=== PATIENT | male | born 1975 | race Hispanic/Latino ===

== ENCOUNTER 2017-08-07 13:04 | Outpatient (RCR) | payer OTHER, BC, SELFPAY ==
--- NOTE | 2017-08-07 15:45 | PT.OTN ---
Current Diagnoses Pain in right hip (08/07/17) Stiffness of unspecified joint, not elsewhere classified (08/07/17) Lumbago with sciatica, right side (08/07/17) Low back pain (08/07/17) Transition note: On August 07, 2017 our therapy services consisting of Speech, Occupational, and Physical Therapy transitioned from the [employer] electronic documentation system to a new [employer] electronic documentation system.?? All documentation prior to August 07 can be found under [employer] saved data. From August 07 forward all medical record documentation will be in [employer] 6[employer]1.
--- NOTE | 2017-08-07 16:38 | PT.OTN ---
Physical Therapy Treatment Note PT-OP-C Subjective Start: 08/07/17 16:11 Freq: Status: Active Protocol: Activity Type Activity Date Activity User E-Sign Co-Sign Detail Recorded Client Recorded Date Recorded By Document 08/07/17 16:12 EA [id number] 08/07/17 16:35 EA 08/07/17 16:12 OP-PT Subjective [Patient Comments] -Patient Comments Patient reports just went for a boat rowing for 2 hours and is warm up and would like to proceed to main therapeutic exercises. Patient also reports low back pain is getting better but right hip continue to bother him withcertain hip mobility. -Patient Reported Progress Improving PT-OP-Q Treatments Start: 08/07/17 16:11 Freq: Status: Active Protocol: Activity Type Activity Date Activity User E-Sign Co-Sign Detail Recorded Client Recorded Date Recorded By Document 08/07/17 16:12 EA [id number] 08/07/17 16:35 EA 08/07/17 16:12 Gym Equipment [Cable Column (Body Solid)] Other- 2 -Details Adjustable cable steady lunges w/ trunk rotation -Resistance 10 lbs -Reps/Time 12 reps x 2 sets each sides Other- 1 -Details Adjustable cable low row cable sit to stand -Resistance 10-20 lbs -Reps/Time 12 reps x 2 sets Therapeutic Exercises [Supine Exercises] 4 -Supine Exercise Name SLR -Side right -Resistance x 2 lbs AW -Reps/Minutes 12 reps x 2 3 -Supine Exercise Name Periformis stretch -Side right -Reps/Minutes 30 SH x 2 2 -Supine Exercise Name Unilateral PPT knee to chest -Side right -Reps/Minutes 30 SH x 2 1 -Supine Exercise Name Supine Abdominal bracing w/ marching -Side bilateral -Reps/Minutes 15 reps x 2 [Standing Exercises] 3 -Standing Exercise Name Half kneeling QL, IT band, TFl stretch -Side right -Reps/Minutes 30 SH x 2 reps e 2 -Standing Exercise Name Half kneeling hip flexors and quads stretch -Side bilateral -Reps/Minutes 30 SH x 2 reps 1 -Standing Exercise Name Side step squat -Side bilateral -Resistance GTB to both ankle -Reps/Minutes 2 lines Manual Therapy Treatment [Soft Tissue Mobilization] 1 -Body Location Right hip flexors -Mobilization Type Sustained Pressure -Intensity/Depth Moderate -Body Position Supine [Joint Mobilizations] 1 -Joint R hip joint -Direction Post -Grade II -Body Position Supine PT-OP-R Modalities Start: 08/07/17 16:11 Freq: Status: Active Protocol: Activity Type Activity Date Activity User E-Sign Co-Sign Detail Recorded Client Recorded Date Recorded By Document 08/07/17 16:12 EA [id number] 08/07/17 16:35 EA 08/07/17 16:12 Electric Stimulation [Electric Stimulation] Interferential Current (IFC) -Body Location Right paralumabars and right hip flexors -Duration (Minutes) 15 -Contraction Type Normal -Target/Sweep Target -Combined With Heat/Cold Hot Pack Hot Pack/Cold Pack [Treatment] Hot Pack -Patient Position Hooklying -Patient Tolerance Good PT-OP-T Assessment and Plan Start: 08/07/17 16:11 Freq: Status: Active Protocol: Activity Type Activity Date Activity User E-Sign Co-Sign Detail Recorded Client Recorded Date Recorded By Document 08/07/17 16:12 EA [id number] 08/07/17 16:35 EA 08/07/17 16:12 Physical Therapy Assessment [Assessment Summary] -Assessment Patient tolerated treatment with minimal hip discomfort during AROM and STM. overall patient is progressing well as to functional activities and mobility. Physical Therapy Plan [Next Visit Focus/Plan] -Next Visit Plan Cont. with current program and advance if necessary Current Diagnoses Pain in right hip (08/07/17) Stiffness of unspecified joint, not elsewhere classified (08/07/17) Lumbago with sciatica, right side (08/07/17) Low back pain (08/07/17)
--- NOTE | 2018-01-14 11:52 | PT.OPDS ---
Current Diagnoses Pain in right hip (08/07/17) Stiffness of unspecified joint, not elsewhere classified (08/07/17) Lumbago with sciatica, right side (08/07/17) Low back pain (08/07/17) Provider Visit Care Team Role Provider Type Heidi Richardson DO Attending Provider Physician Family Provider Primary Care Provider Specialty: [facility] Practice Address: [address] [place] [address], [facility] Email: [email or web address] Discharge Summary PT-OP-T Assessment and Plan Start: 08/07/17 16:11 Freq: Status: Active Protocol: Document 01/14/18 11:51 DCW (Rec: 01/14/18 11:52 DCW [id number]) Physical Therapy Plan Next Visit Focus/Plan Next Note Type Discharge Summary Next Visit Plan Pt cancelled or no showed final five scheduled, and has now not been seen in more than five months. Pt will be discharged from skilled therapy at this time.
== END 2018-01-21 16:06 ==
LOC: PHYS 13:04
PROVIDERS: Family Provider Family Medicine; PCP Family Medicine; Visit Provider Family Medicine
DX: M54.5 Low back pain (principal); M54.41 Lumbago with sciatica, right side; M25.60 Stiffness of unspecified joint, not elsewhere classified; M25.551 Pain in right hip
CPT/HCPCS: 97110; 97140

== ENCOUNTER 2017-09-23 13:19 | Emergency (ER) | payer BC, SELFPAY ==
[2017-09-23 13:25] VITALS: BP 129/81; PULSE 81; RESP 22; TEMP 36.8; O2SAT 99
[2017-09-23 13:46] VITALS: BP 130/75; PULSE 67; RESP 26; O2SAT 96
--- NOTE | 2017-09-23 13:54 | ED.CHESTPAIN ---
HPI - Chest Pain <CLEMENT Pro - Last Filed: 09/23/17 22:03> General Chief Complaint: Chest Pain Stated Complaint: CHEST PAINS,DIZZYNESS,SHORTNESS OF BREATH Time Seen by Provider: 09/23/17 13:53 History of Present Illness HPI narrative: 42-year-old male here with complaint of having pain to his chest that radiated to his left ribcage and to his back also radiating into his left arm into his left neck that started last night. He denies any trauma to the area. He denies any stressors. He denies any strenuous activity. Positive p.o. intake. No nausea vomiting. No diaphoresis. He denies any risk factors. No prior cardiac history. Patient is ambulatory into the emergency room. No other concerns or complaints MD complaint: chest pain Duration: constant Onset: during rest Severity: moderate Related Data Previous Rx's Medication Instructions Recorded diclofenac sodium [Voltaren] 1 marilyn TOPICAL QIDP PRN #100 gm 09/28/16 hydrocodone-acetaminophen 1 tab PO Q4HP PRN #10 tab 04/20/17 ondansetron [Zofran ODT] 4 mg SUBLINGUAL Q6HP PRN #10 odt 04/20/17 cyclobenzaprine 10 mg PO Q8HP PRN #20 tab 04/27/17 meloxicam 15 mg PO Q DAY #20 tab 04/27/17 prazosin 0 PO HS #30 cap 04/27/17 lorazepam 1 mg PO SEE INSTRUCTIONS #2 05/18/17 Allergies Allergy/AdvReac Type Severity Reaction Status Date / Time No Known Allergies Allergy Uncoded 07/18/17 12:40 Review of Systems <CLEMENT Pro - Last Filed: 09/23/17 22:03> Constitutional Denies chills, Denies fatigue, Denies fever(s), Denies lethargy and Denies weakness Eyes Denies change in vision, Denies eye discharge, Denies irritation and Denies loss of vision ENT Ears, Nose, Mouth, and Throat: Denies change in voice, Denies neck pain and Denies sore throat Cardiovascular Reports chest pain, Denies dyspnea and Denies dyspnea on exertion Respiratory Denies cough, Denies dyspnea, Denies dyspnea on exertion and Denies wheezing Gastrointestinal Gastrointestinal: Denies abdominal pain, Denies change in bowel habits, Denies diarrhea, Denies nausea and Denies vomiting Genitourinary Denies hematuria, Denies flank pain, Denies urinary incontinence and Denies urinary urgency Musculoskeletal Denies neck pain Integumentary/Breasts Denies pruritus, Denies erythema, Denies rash and Denies wounds Neurologic Denies confusion, Denies loss of vision and Denies weakness Psychiatric Denies anxiety, Denies confusion, Denies depression, Denies homicidal ideation and Denies suicidal ideation Endocrine Denies fatigue and Denies flushing Hematologic/Lymphatic Denies easy bruising Allergic/Immunologic Denies wheezing Exam <CLEMENT Pro - Last Filed: 09/23/17 22:03> Initial Vital Signs Initial Vital Signs: Vital Signs Temperature 98.3 F 09/23/17 13:25 Pulse Rate 81 09/23/17 13:25 Respiratory Rate 22 09/23/17 13:25 Blood Pressure 129/81 H 09/23/17 13:25 Pulse Oximetry 99 09/23/17 13:25 Const General: cooperative and well developed Nutritional Appearance: well nourished Orientation: alert, awake, oriented x3 and not confused [facility] Mouth: oral mucosae normal and moist mucous membranes Eyes Conjunctivae: conjunctivae normal Sclera: sclerae normal Pupils: PERRL EOM: EOM intact bilaterally Neck Neck: normal visual inspection, trachea midline, No lymphadenopathy, No midline deformity and No JVD Lymphatic: No lymphedema Chest Chest: normal inspection of the chest Resp Effort & Inspection: normal respiratory effort, able to speak in complete sentences, no respiratory distress and no use of accessory muscles Auscultation: clear to auscultation bilaterally, no rales, no rhonchi and no wheezes Cardio Rate: regular rate Rhythm: regular rhythm Heart Sounds: no click, no gallops, no murmurs and no rubs Pulses: normal peripheral pulses GI Inspection: non-distended Palpation: soft, no hepatosplenomegaly, No guarding, No pulsatile mass and No tender Auscultation: normal bowel sounds Skin General: no rashes or lesions noted, No jaundice and No petechiae <Nara Alfaro DO - Last Filed: 09/26/17 19:58> Initial Vital Signs Initial Vital Signs: Vital Signs Temperature 98.3 F 09/23/17 13:25 Pulse Rate 81 09/23/17 13:25 Respiratory Rate 22 09/23/17 13:25 Blood Pressure 129/81 H 09/23/17 13:25 Pulse Oximetry 99 09/23/17 13:25 Scores <CLEMENT Pro - Last Filed: 09/23/17 22:03> HEART Score Heart Score history: Moderately Suspicious Heart Score EKG: Normal Heart Score Age: < 45 years old Heart Score risk factors: No known risk factors Heart Score troponin: < or = to normal limit Heart Score Total: 1 PERC Score Age greater than or equal to 50 years: No Heart rate greater than or equal to 100 bpm: No Room Air O2 Sat less than 95%: No Unilateral leg swelling: No Recent trauma or surgery: No Hemoptysis: No Prior PE or DVT: No Hormone Use: No Total PERC Score: 0 Course <CLEMENT Pro - Last Filed: 09/23/17 22:03> Orders Ordered: Discontinued Medications Aspirin (Aspirin Chew) 324 mg PO NOW ONE Stop: 09/23/17 13:56 Last Admin: 09/23/17 14:29 Dose: 324 mg Sodium Chloride (Normal Saline 0.9%) 1,000 mls @ 100 mls/hr IV CONT ANNABELLE Last Infusion: 09/23/17 16:03 Dose: 0 mls/hr Admin: 09/23/17 14:31 Dose: 100 mls/hr Nitroglycerin (Nitrostat) 0.4 mg SL [id number] PRN PRN Reason: Chest Pain Last Admin: 09/23/17 14:35 Dose: 0.4 mg Vital Signs - 8 hr 09/23/17 14:35 09/23/17 15:18 09/23/17 17:30 Pulse Rate 82 66 78 Respiratory Rate 14 20 Blood Pressure 122/78 H 134/80 H Blood Pressure [Right Arm] 118/84 H Pulse Oximetry 100 98 <Nara Alfaro DO - Last Filed: 09/26/17 19:58> Orders Ordered: Discontinued Medications Aspirin (Aspirin Chew) 324 mg PO NOW ONE Stop: 09/23/17 13:56 Last Admin: 09/23/17 14:29 Dose: 324 mg Sodium Chloride (Normal Saline 0.9%) 1,000 mls @ 100 mls/hr IV CONT ANNABELLE Last Infusion: 09/23/17 16:03 Dose: 0 mls/hr Admin: 09/23/17 14:31 Dose: 100 mls/hr Nitroglycerin (Nitrostat) 0.4 mg SL [id number] PRN PRN Reason: Chest Pain Last Admin: 09/23/17 14:35 Dose: 0.4 mg Vital Signs - 8 hr 09/23/17 14:35 09/23/17 15:18 09/23/17 17:30 Pulse Rate 82 66 78 Respiratory Rate 14 20 Blood Pressure 122/78 H 134/80 H Blood Pressure [Right Arm] 118/84 H Pulse Oximetry 100 98 MDM - Chest Pain <CLEMENT Pro - Last Filed: 09/23/17 22:03> Lab Data Result diagrams: 09/23/17 13:38 09/23/17 13:38 Lab Results 09/23/17 09/23/17 09/23/17 Range/Units 13:38 13:38 16:35 WBC 9.7 (4.5-11.0) X10^3/uL RBC 4.81 (4.5-5.9) X10^6/uL Hgb 15.1 (13.5-17.5) g/dL Hct 44.4 (41-53) % MCV 92.3 (80-100) fL MCH 31.5 (26-34) PG MCHC 34.1 (30-36) % RDW 13.8 (11.6-14.8) % Plt Count 231 (150-400) X10^3/uL Neut % (Auto) 58.9 (50-75) % Lymph % (Auto) 32.2 (25-40) % Baker % (Auto) 7.3 (3-14) % Eos % (Auto) 1.1 L (2-4) % Baso % (Auto) 0.5 (0-2) % Neut # (Auto) 5700 (0401-6542) /uL Sodium 144 (137-145) mmol/L Potassium 4.0 (3.4-5.1) mmol/L Chloride 107 (98-107) mmol/L Carbon Dioxide 24 (22-32) mmol/L BUN 20 (9-20) mg/dL Creatinine 0.80 (0.66-1.25) mg/dL Estimated GFR > 60.0 (>60) mL/min BUN/Creatinine Ratio 25.0 H (6-22) Glucose 109 H (70-100) mg/dL Calcium 10.2 (8.4-10.2) mg/dL Total Bilirubin 0.4 (0.2-1.3) mg/dL AST 24 (17-59) IU/L ALT 28 (21-72) IU/L Alkaline Phosphatase 65 (38-126) U/L Total Creatine Kinase 172 H (55-170) U/L CK-MB (CK-2) 1.00 (<2.37) ng/mL CK-MB (CK-2) Rel Index 0.6 L (1.5-5.0) % Troponin I < 0.012 Cancelled (0.01-0.034) ng/mL Total Protein 7.1 (6.3-8.2) g/dL Albumin 4.3 (3.5-5.0) g/dL Globulin 2.8 (1.7-4.1) g/dL Albumin/Globulin Ratio 1.5 (1.0-2.8) / Range/Units 16:35 WBC (4.5-11.0) X10^3/uL RBC (4.5-5.9) X10^6/uL Hgb (13.5-17.5) g/dL Hct (41-53) % MCV (80-100) fL MCH (26-34) PG MCHC (30-36) % RDW (11.6-14.8) % Plt Count (150-400) X10^3/uL Neut % (Auto) (50-75) % Lymph % (Auto) (25-40) % Baker % (Auto) (3-14) % Eos % (Auto) (2-4) % Baso % (Auto) (0-2) % Neut # (Auto) (7531-4384) /uL Sodium (137-145) mmol/L Potassium (3.4-5.1) mmol/L Chloride (98-107) mmol/L Carbon Dioxide (22-32) mmol/L BUN (9-20) mg/dL Creatinine (0.66-1.25) mg/dL Estimated GFR (>60) mL/min BUN/Creatinine Ratio (6-22) Glucose (70-100) mg/dL Calcium (8.4-10.2) mg/dL Total Bilirubin (0.2-1.3) mg/dL AST (17-59) IU/L ALT (21-72) IU/L Alkaline Phosphatase (38-126) U/L Total Creatine Kinase 166 (55-170) U/L CK-MB (CK-2) 0.94 (<2.37) ng/mL CK-MB (CK-2) Rel Index 0.6 L (1.5-5.0) % Troponin I < 0.012 (0.01-0.034) ng/mL Total Protein (6.3-8.2) g/dL Albumin (3.5-5.0) g/dL Globulin (1.7-4.1) g/dL Albumin/Globulin Ratio (1.0-2.8) Imaging Data Chest x-ray: Radiologist's impression: PROCEDURE: XR CHEST 1V INDICATIONS: Chest pain TECHNIQUE: One view of the chest was acquired. COMPARISON: None. FINDINGS: Surgical changes and devices: None. Lungs and pleura: No pleural effusions or pneumothorax. Lungs are clear. Mediastinum: Mediastinal contours appear normal. Heart size is normal. Bones and chest wall: No suspicious bony lesions. Overlying soft tissues appear unremarkable. IMPRESSION: No acute process. Dictated by: Nadja Powers M.D. on 09/23/2017 at 14:22 Approved by: Nadja Powers M.D. on 09/23/2017 at 14:22 ECG Data Interpretation: EKG shows normal sinus rhythm with no ST elevation or depression. No ectopy. Ventricular rate is 61. TX interval of 200. QRS duration of 103. QT of 387. MDM Narrative Medical decision making narrative: EKG shows normal sinus rhythm with no ST elevation or depression. Two sets of cardiac enzymes were obtained and were unremarkable. Chest x-ray was negative for any acute findings. Patient was given 1 nitroglycerin tablet which relieved his pain. 2nd EKG was obtained and was similar to 1st patient remained pain-free after 1st nitro for duration of visit. Heart score of 1 and perC score of 0. Patient is informed to follow up with primary care provider later this week with discussion for further evaluation such as echo and stress test. For any worsening symptoms return to the emergency room. Differential of muscle skeletal pain to the chest wall <Nara Alfaro DO - Last Filed: 09/26/17 19:58> Lab Data Lab Results 09/23/17 09/23/17 09/23/17 Range/Units 13:38 13:38 16:35 WBC 9.7 (4.5-11.0) X10^3/uL RBC 4.81 (4.5-5.9) X10^6/uL Hgb 15.1 (13.5-17.5) g/dL Hct 44.4 (41-53) % MCV 92.3 (80-100) fL MCH 31.5 (26-34) PG MCHC 34.1 (30-36) % RDW 13.8 (11.6-14.8) % Plt Count 231 (150-400) X10^3/uL Neut % (Auto) 58.9 (50-75) % Lymph % (Auto) 32.2 (25-40) % Baker % (Auto) 7.3 (3-14) % Eos % (Auto) 1.1 L (2-4) % Baso % (Auto) 0.5 (0-2) % Neut # (Auto) 5700 (4997-3186) /uL Sodium 144 (137-145) mmol/L Potassium 4.0 (3.4-5.1) mmol/L Chloride 107 (98-107) mmol/L Carbon Dioxide 24 (22-32) mmol/L BUN 20 (9-20) mg/dL Creatinine 0.80 (0.66-1.25) mg/dL Estimated GFR > 60.0 (>60) mL/min BUN/Creatinine Ratio 25.0 H (6-22) Glucose 109 H (70-100) mg/dL Calcium 10.2 (8.4-10.2) mg/dL Total Bilirubin 0.4 (0.2-1.3) mg/dL AST 24 (17-59) IU/L ALT 28 (21-72) IU/L Alkaline Phosphatase 65 (38-126) U/L Total Creatine Kinase 172 H (55-170) U/L CK-MB (CK-2) 1.00 (<2.37) ng/mL CK-MB (CK-2) Rel Index 0.6 L (1.5-5.0) % Troponin I < 0.012 Cancelled (0.01-0.034) ng/mL Total Protein 7.1 (6.3-8.2) g/dL Albumin 4.3 (3.5-5.0) g/dL Globulin 2.8 (1.7-4.1) g/dL Albumin/Globulin Ratio 1.5 (1.0-2.8) / Range/Units 16:35 WBC (4.5-11.0) X10^3/uL RBC (4.5-5.9) X10^6/uL Hgb (13.5-17.5) g/dL Hct (41-53) % MCV (80-100) fL MCH (26-34) PG MCHC (30-36) % RDW (11.6-14.8) % Plt Count (150-400) X10^3/uL Neut % (Auto) (50-75) % Lymph % (Auto) (25-40) % Baker % (Auto) (3-14) % Eos % (Auto) (2-4) % Baso % (Auto) (0-2) % Neut # (Auto) (6080-4267) /uL Sodium (137-145) mmol/L Potassium (3.4-5.1) mmol/L Chloride (98-107) mmol/L Carbon Dioxide (22-32) mmol/L BUN (9-20) mg/dL Creatinine (0.66-1.25) mg/dL Estimated GFR (>60) mL/min BUN/Creatinine Ratio (6-22) Glucose (70-100) mg/dL Calcium (8.4-10.2) mg/dL Total Bilirubin (0.2-1.3) mg/dL AST (17-59) IU/L ALT (21-72) IU/L Alkaline Phosphatase (38-126) U/L Total Creatine Kinase 166 (55-170) U/L CK-MB (CK-2) 0.94 (<2.37) ng/mL CK-MB (CK-2) Rel Index 0.6 L (1.5-5.0) % Troponin I < 0.012 (0.01-0.034) ng/mL Total Protein (6.3-8.2) g/dL Albumin (3.5-5.0) g/dL Globulin (1.7-4.1) g/dL Albumin/Globulin Ratio (1.0-2.8) Discharge Plan Departure Patient Disposition: Home, Self-Care Clinical Impression: Chest pain Discharge Date/Time: 09/23/17 17:30 Interventions: ED Discharge Assessment Last Done: 09/23/17 17:30 Instructions: DI for Chest Pain Activity Restrictions/Additional Instructions: Laboratory results imaging and EKG today were unremarkable. No emergent etiology for chest pain has been identified. However this does not mean that there is a low risk that this could still be heart related. Follow up with her primary care provider in the next few days for re-evaluation and discussion on further evaluation such as stress test and echocardiogram. Use [id number] Tylenol or Motrin as needed for any discomfort. Symptoms may also be due to muscle skeletal discomfort. For any worsening symptoms return to the emergency room. Prescriptions: No Action diclofenac sodium [Voltaren] 1 % gel 1 marilyn Topical QIDP PRNQty: 100 RF: 2 hydrocodone-acetaminophen 5 MG/325 MG tablet 1 tab PO Q4HP PRNQty: 10 RF: 0 ondansetron [Zofran ODT] 4 MG tablet,disintegrating 4 mg Sublingual Q6HP PRNQty: 10 RF: 0 cyclobenzaprine 10 MG tablet 10 mg PO Q8HP PRNQty: 20 RF: 0 meloxicam 15 MG tablet 15 mg PO Q DAY Qty: 20 RF: 0 prazosin 1 MG capsule PO HS Qty: 30 RF: 0 lorazepam 1 MG tablet 1 mg PO SEE INSTRUCTIONS Qty: 2 RF: 0 Referrals: Heidi Richardson DO [Primary Care Provider] - <Nara Alfaro DO - Last Filed: 09/26/17 19:58> [facility] ED Attending Benjamin Attestation: I was immediately available in the department for consultation. Documentation has been reviewed. I agree with assessment and plan.
[2017-09-23 14:07] LABS: Add Manual Diff / Slide Review NO; Basophils Percent Auto 0.5 % (0-2); Eosinophils Percent Auto 1.1 % (2-4); Hematocrit 44.4 % (41-53); Hemoglobin 15.1 g/dL (13.5-17.5); Lymphocytes Percent Auto 32.2 % (25-40); Mean Corpuscular HGB Conc 34.1 % (30-36); Mean Corpuscular Hemoglobin 31.5 PG (26-34); Mean Corpuscular Volume 92.3 fL (80-100); Monocytes Percent Auto 7.3 % (3-14); Neutrophils Absolute Auto 5700 /uL (3000-5900); Neutrophils Percent Auto 58.9 % (50-75); Platelet Count 231 X10^3/uL (150-400); Red Blood Cell Count 4.81 X10^6/uL (4.5-5.9); Red Cell Distribution Width 13.8 % (11.6-14.8); White Blood Cell Count 9.7 X10^3/uL (4.5-11.0)
[2017-09-23 14:11] LABS: Alanine Aminotransferase 28 IU/L (21-72); Albumin 4.3 g/dL (3.5-5.0); Albumin Globulin Ratio 1.5 (1.0-2.8); Alkaline Phosphatase 65 U/L (38-126); Aspartate Aminotransferase 24 IU/L (17-59); Bilirubin Total 0.4 mg/dL (0.2-1.3); Blood Urea Nitrogen 20 mg/dL (9-20); Calcium 10.2 mg/dL (8.4-10.2); Carbon Dioxide 24 mmol/L (22-32); Chloride 107 mmol/L (98-107); Creatine Kinase 172 U/L (55-170); Estimated Glomerular Filt Rate > 60.0 mL/min (>60); Globulin 2.8 g/dL (1.7-4.1); Glucose 109 mg/dL (70-100); HEMOLYSIS < 15 (0-50); Sodium 144 mmol/L (137-145); Total Protein 7.1 g/dL (6.3-8.2)
[2017-09-23 14:26] LABS: CKMB % Relative Index 0.6 % (1.5-5.0)
[2017-09-23 14:27] LABS: Troponin I < 0.012 ng/mL (0.01-0.034)
[2017-09-23] MEDS: ASPIRIN 81 MG TAB 324 MG PO (14:29)
[2017-09-23] MEDS: SODIUM CHLORIDE 0.9% 1,000 ML 100 ML IV (14:31)
--- NOTE | 2017-09-23 14:33 | ED_ITS ---
HPI - Chest Pain <CLEMENT Pro - Last Filed: 09/23/17 22:03> General Chief Complaint: Chest Pain Stated Complaint: CHEST PAINS,DIZZYNESS,SHORTNESS OF BREATH Time Seen by Provider: 09/23/17 13:53 History of Present Illness HPI narrative: 42-year-old male here with complaint of having pain to his chest that radiated to his left ribcage and to his back also radiating into his left arm into his left neck that started last night. He denies any trauma to the area. He denies any stressors. He denies any strenuous activity. Positive p.o. intake. No nausea vomiting. No diaphoresis. He denies any risk factors. No prior cardiac history. Patient is ambulatory into the emergency room. No other concerns or complaints MD complaint: chest pain Duration: constant Onset: during rest Severity: moderate Related Data Previous Rx's Medication Instructions Recorded diclofenac sodium [Voltaren] 1 marilyn TOPICAL QIDP PRN #100 gm 09/28/16 hydrocodone-acetaminophen 1 tab PO Q4HP PRN #10 tab 04/20/17 ondansetron [Zofran ODT] 4 mg SUBLINGUAL Q6HP PRN #10 odt 04/20/17 cyclobenzaprine 10 mg PO Q8HP PRN #20 tab 04/27/17 meloxicam 15 mg PO Q DAY #20 tab 04/27/17 prazosin 0 PO HS #30 cap 04/27/17 lorazepam 1 mg PO SEE INSTRUCTIONS #2 05/18/17 Allergies Allergy/AdvReac Type Severity Reaction Status Date / Time No Known Allergies Allergy Uncoded 07/18/17 12:40 Review of Systems <CLEMENT Pro - Last Filed: 09/23/17 22:03> Constitutional Denies chills, Denies fatigue, Denies fever(s), Denies lethargy and Denies weakness Eyes Denies change in vision, Denies eye discharge, Denies irritation and Denies loss of vision ENT Ears, Nose, Mouth, and Throat: Denies change in voice, Denies neck pain and Denies sore throat Cardiovascular Reports chest pain, Denies dyspnea and Denies dyspnea on exertion Respiratory Denies cough, Denies dyspnea, Denies dyspnea on exertion and Denies wheezing Gastrointestinal Gastrointestinal: Denies abdominal pain, Denies change in bowel habits, Denies diarrhea, Denies nausea and Denies vomiting Genitourinary Denies hematuria, Denies flank pain, Denies urinary incontinence and Denies urinary urgency Musculoskeletal Denies neck pain Integumentary/Breasts Denies pruritus, Denies erythema, Denies rash and Denies wounds Neurologic Denies confusion, Denies loss of vision and Denies weakness Psychiatric Denies anxiety, Denies confusion, Denies depression, Denies homicidal ideation and Denies suicidal ideation Endocrine Denies fatigue and Denies flushing Hematologic/Lymphatic Denies easy bruising Allergic/Immunologic Denies wheezing Exam <CLEMENT Pro - Last Filed: 09/23/17 22:03> Initial Vital Signs Initial Vital Signs: Vital Signs Temperature 98.3 F 09/23/17 13:25 Pulse Rate 81 09/23/17 13:25 Respiratory Rate 22 09/23/17 13:25 Blood Pressure 129/81 H 09/23/17 13:25 Pulse Oximetry 99 09/23/17 13:25 Const General: cooperative and well developed Nutritional Appearance: well nourished Orientation: alert, awake, oriented x3 and not confused [facility] Mouth: oral mucosae normal and moist mucous membranes Eyes Conjunctivae: conjunctivae normal Sclera: sclerae normal Pupils: PERRL EOM: EOM intact bilaterally Neck Neck: normal visual inspection, trachea midline, No lymphadenopathy, No midline deformity and No JVD Lymphatic: No lymphedema Chest Chest: normal inspection of the chest Resp Effort & Inspection: normal respiratory effort, able to speak in complete sentences, no respiratory distress and no use of accessory muscles Auscultation: clear to auscultation bilaterally, no rales, no rhonchi and no wheezes Cardio Rate: regular rate Rhythm: regular rhythm Heart Sounds: no click, no gallops, no murmurs and no rubs Pulses: normal peripheral pulses GI Inspection: non-distended Palpation: soft, no hepatosplenomegaly, No guarding, No pulsatile mass and No tender Auscultation: normal bowel sounds Skin General: no rashes or lesions noted, No jaundice and No petechiae <Nara Alfaro DO - Last Filed: 09/26/17 19:58> Initial Vital Signs Initial Vital Signs: Vital Signs Temperature 98.3 F 09/23/17 13:25 Pulse Rate 81 09/23/17 13:25 Respiratory Rate 22 09/23/17 13:25 Blood Pressure 129/81 H 09/23/17 13:25 Pulse Oximetry 99 09/23/17 13:25 Scores <CLEMENT Pro - Last Filed: 09/23/17 22:03> HEART Score Heart Score history: Moderately Suspicious Heart Score EKG: Normal Heart Score Age: < 45 years old Heart Score risk factors: No known risk factors Heart Score troponin: < or = to normal limit Heart Score Total: 1 PERC Score Age greater than or equal to 50 years: No Heart rate greater than or equal to 100 bpm: No Room Air O2 Sat less than 95%: No Unilateral leg swelling: No Recent trauma or surgery: No Hemoptysis: No Prior PE or DVT: No Hormone Use: No Total PERC Score: 0 Course <CLEMENT Pro - Last Filed: 09/23/17 22:03> Orders Ordered: Discontinued Medications Aspirin (Aspirin Chew) 324 mg PO NOW ONE Stop: 09/23/17 13:56 Last Admin: 09/23/17 14:29 Dose: 324 mg Sodium Chloride (Normal Saline 0.9%) 1,000 mls @ 100 mls/hr IV CONT ANNABELLE Last Infusion: 09/23/17 16:03 Dose: 0 mls/hr Admin: 09/23/17 14:31 Dose: 100 mls/hr Nitroglycerin (Nitrostat) 0.4 mg SL [id number] PRN PRN Reason: Chest Pain Last Admin: 09/23/17 14:35 Dose: 0.4 mg Vital Signs - 8 hr 09/23/17 14:35 09/23/17 15:18 09/23/17 17:30 Pulse Rate 82 66 78 Respiratory Rate 14 20 Blood Pressure 122/78 H 134/80 H Blood Pressure [Right Arm] 118/84 H Pulse Oximetry 100 98 <Nara Alfaro DO - Last Filed: 09/26/17 19:58> Orders Ordered: Discontinued Medications Aspirin (Aspirin Chew) 324 mg PO NOW ONE Stop: 09/23/17 13:56 Last Admin: 09/23/17 14:29 Dose: 324 mg Sodium Chloride (Normal Saline 0.9%) 1,000 mls @ 100 mls/hr IV CONT ANNABELLE Last Infusion: 09/23/17 16:03 Dose: 0 mls/hr Admin: 09/23/17 14:31 Dose: 100 mls/hr Nitroglycerin (Nitrostat) 0.4 mg SL [id number] PRN PRN Reason: Chest Pain Last Admin: 09/23/17 14:35 Dose: 0.4 mg Vital Signs - 8 hr 09/23/17 14:35 09/23/17 15:18 09/23/17 17:30 Pulse Rate 82 66 78 Respiratory Rate 14 20 Blood Pressure 122/78 H 134/80 H Blood Pressure [Right Arm] 118/84 H Pulse Oximetry 100 98 MDM - Chest Pain <CLEMENT Pro - Last Filed: 09/23/17 22:03> Lab Data Result diagrams: 09/23/17 13:38 09/23/17 13:38 Lab Results 09/23/17 09/23/17 09/23/17 Range/Units 13:38 13:38 16:35 WBC 9.7 (4.5-11.0) X10^3/uL RBC 4.81 (4.5-5.9) X10^6/uL Hgb 15.1 (13.5-17.5) g/dL Hct 44.4 (41-53) % MCV 92.3 (80-100) fL MCH 31.5 (26-34) PG MCHC 34.1 (30-36) % RDW 13.8 (11.6-14.8) % Plt Count 231 (150-400) X10^3/uL Neut % (Auto) 58.9 (50-75) % Lymph % (Auto) 32.2 (25-40) % Glades % (Auto) 7.3 (3-14) % Eos % (Auto) 1.1 L (2-4) % Baso % (Auto) 0.5 (0-2) % Neut # (Auto) 5700 (4809-6156) /uL Sodium 144 (137-145) mmol/L Potassium 4.0 (3.4-5.1) mmol/L Chloride 107 (98-107) mmol/L Carbon Dioxide 24 (22-32) mmol/L BUN 20 (9-20) mg/dL Creatinine 0.80 (0.66-1.25) mg/dL Estimated GFR > 60.0 (>60) mL/min BUN/Creatinine Ratio 25.0 H (6-22) Glucose 109 H (70-100) mg/dL Calcium 10.2 (8.4-10.2) mg/dL Total Bilirubin 0.4 (0.2-1.3) mg/dL AST 24 (17-59) IU/L ALT 28 (21-72) IU/L Alkaline Phosphatase 65 (38-126) U/L Total Creatine Kinase 172 H (55-170) U/L CK-MB (CK-2) 1.00 (<2.37) ng/mL CK-MB (CK-2) Rel Index 0.6 L (1.5-5.0) % Troponin I < 0.012 Cancelled (0.01-0.034) ng/mL Total Protein 7.1 (6.3-8.2) g/dL Albumin 4.3 (3.5-5.0) g/dL Globulin 2.8 (1.7-4.1) g/dL Albumin/Globulin Ratio 1.5 (1.0-2.8) / Range/Units 16:35 WBC (4.5-11.0) X10^3/uL RBC (4.5-5.9) X10^6/uL Hgb (13.5-17.5) g/dL Hct (41-53) % MCV (80-100) fL MCH (26-34) PG MCHC (30-36) % RDW (11.6-14.8) % Plt Count (150-400) X10^3/uL Neut % (Auto) (50-75) % Lymph % (Auto) (25-40) % Glades % (Auto) (3-14) % Eos % (Auto) (2-4) % Baso % (Auto) (0-2) % Neut # (Auto) (6538-5444) /uL Sodium (137-145) mmol/L Potassium (3.4-5.1) mmol/L Chloride (98-107) mmol/L Carbon Dioxide (22-32) mmol/L BUN (9-20) mg/dL Creatinine (0.66-1.25) mg/dL Estimated GFR (>60) mL/min BUN/Creatinine Ratio (6-22) Glucose (70-100) mg/dL Calcium (8.4-10.2) mg/dL Total Bilirubin (0.2-1.3) mg/dL AST (17-59) IU/L ALT (21-72) IU/L Alkaline Phosphatase (38-126) U/L Total Creatine Kinase 166 (55-170) U/L CK-MB (CK-2) 0.94 (<2.37) ng/mL CK-MB (CK-2) Rel Index 0.6 L (1.5-5.0) % Troponin I < 0.012 (0.01-0.034) ng/mL Total Protein (6.3-8.2) g/dL Albumin (3.5-5.0) g/dL Globulin (1.7-4.1) g/dL Albumin/Globulin Ratio (1.0-2.8) Imaging Data Chest x-ray: Radiologist's impression: PROCEDURE: XR CHEST 1V INDICATIONS: Chest pain TECHNIQUE: One view of the chest was acquired. COMPARISON: None. FINDINGS: Surgical changes and devices: None. Lungs and pleura: No pleural effusions or pneumothorax. Lungs are clear. Mediastinum: Mediastinal contours appear normal. Heart size is normal. Bones and chest wall: No suspicious bony lesions. Overlying soft tissues appear unremarkable. IMPRESSION: No acute process. Dictated by: Nadja Powers M.D. on 09/23/2017 at 14:22 Approved by: Nadja Powers M.D. on 09/23/2017 at 14:22 ECG Data Interpretation: EKG shows normal sinus rhythm with no ST elevation or depression. No ectopy. Ventricular rate is 61. OK interval of 200. QRS duration of 103. QT of 387. MDM Narrative Medical decision making narrative: EKG shows normal sinus rhythm with no ST elevation or depression. Two sets of cardiac enzymes were obtained and were unremarkable. Chest x-ray was negative for any acute findings. Patient was given 1 nitroglycerin tablet which relieved his pain. 2nd EKG was obtained and was similar to 1st patient remained pain-free after 1st nitro for duration of visit. Heart score of 1 and perC score of 0. Patient is informed to follow up with primary care provider later this week with discussion for further evaluation such as echo and stress test. For any worsening symptoms return to the emergency room. Differential of muscle skeletal pain to the chest wall <Nara Alfaro DO - Last Filed: 09/26/17 19:58> Lab Data Lab Results 09/23/17 09/23/17 09/23/17 Range/Units 13:38 13:38 16:35 WBC 9.7 (4.5-11.0) X10^3/uL RBC 4.81 (4.5-5.9) X10^6/uL Hgb 15.1 (13.5-17.5) g/dL Hct 44.4 (41-53) % MCV 92.3 (80-100) fL MCH 31.5 (26-34) PG MCHC 34.1 (30-36) % RDW 13.8 (11.6-14.8) % Plt Count 231 (150-400) X10^3/uL Neut % (Auto) 58.9 (50-75) % Lymph % (Auto) 32.2 (25-40) % Glades % (Auto) 7.3 (3-14) % Eos % (Auto) 1.1 L (2-4) % Baso % (Auto) 0.5 (0-2) % Neut # (Auto) 5700 (9284-3854) /uL Sodium 144 (137-145) mmol/L Potassium 4.0 (3.4-5.1) mmol/L Chloride 107 (98-107) mmol/L Carbon Dioxide 24 (22-32) mmol/L BUN 20 (9-20) mg/dL Creatinine 0.80 (0.66-1.25) mg/dL Estimated GFR > 60.0 (>60) mL/min BUN/Creatinine Ratio 25.0 H (6-22) Glucose 109 H (70-100) mg/dL Calcium 10.2 (8.4-10.2) mg/dL Total Bilirubin 0.4 (0.2-1.3) mg/dL AST 24 (17-59) IU/L ALT 28 (21-72) IU/L Alkaline Phosphatase 65 (38-126) U/L Total Creatine Kinase 172 H (55-170) U/L CK-MB (CK-2) 1.00 (<2.37) ng/mL CK-MB (CK-2) Rel Index 0.6 L (1.5-5.0) % Troponin I < 0.012 Cancelled (0.01-0.034) ng/mL Total Protein 7.1 (6.3-8.2) g/dL Albumin 4.3 (3.5-5.0) g/dL Globulin 2.8 (1.7-4.1) g/dL Albumin/Globulin Ratio 1.5 (1.0-2.8) / Range/Units 16:35 WBC (4.5-11.0) X10^3/uL RBC (4.5-5.9) X10^6/uL Hgb (13.5-17.5) g/dL Hct (41-53) % MCV (80-100) fL MCH (26-34) PG MCHC (30-36) % RDW (11.6-14.8) % Plt Count (150-400) X10^3/uL Neut % (Auto) (50-75) % Lymph % (Auto) (25-40) % Glades % (Auto) (3-14) % Eos % (Auto) (2-4) % Baso % (Auto) (0-2) % Neut # (Auto) (1361-9242) /uL Sodium (137-145) mmol/L Potassium (3.4-5.1) mmol/L Chloride (98-107) mmol/L Carbon Dioxide (22-32) mmol/L BUN (9-20) mg/dL Creatinine (0.66-1.25) mg/dL Estimated GFR (>60) mL/min BUN/Creatinine Ratio (6-22) Glucose (70-100) mg/dL Calcium (8.4-10.2) mg/dL Total Bilirubin (0.2-1.3) mg/dL AST (17-59) IU/L ALT (21-72) IU/L Alkaline Phosphatase (38-126) U/L Total Creatine Kinase 166 (55-170) U/L CK-MB (CK-2) 0.94 (<2.37) ng/mL CK-MB (CK-2) Rel Index 0.6 L (1.5-5.0) % Troponin I < 0.012 (0.01-0.034) ng/mL Total Protein (6.3-8.2) g/dL Albumin (3.5-5.0) g/dL Globulin (1.7-4.1) g/dL Albumin/Globulin Ratio (1.0-2.8) Discharge Plan Departure Patient Disposition: Home, Self-Care Clinical Impression: Chest pain Discharge Date/Time: 09/23/17 17:30 Interventions: ED Discharge Assessment Last Done: 09/23/17 17:30 Instructions: DI for Chest Pain Activity Restrictions/Additional Instructions: Laboratory results imaging and EKG today were unremarkable. No emergent etiology for chest pain has been identified. However this does not mean that there is a low risk that this could still be heart related. Follow up with her primary care provider in the next few days for re-evaluation and discussion on further evaluation such as stress test and echocardiogram. Use over-the- counter Tylenol or Motrin as needed for any discomfort. Symptoms may also be due to muscle skeletal discomfort. For any worsening symptoms return to the emergency room. Prescriptions: No Action diclofenac sodium [Voltaren] 1 % gel 1 marilyn Topical QIDP PRNQty: 100 RF: 2 hydrocodone-acetaminophen 5 MG/325 MG tablet 1 tab PO Q4HP PRNQty: 10 RF: 0 ondansetron [Zofran ODT] 4 MG tablet,disintegrating 4 mg Sublingual Q6HP PRNQty: 10 RF: 0 cyclobenzaprine 10 MG tablet 10 mg PO Q8HP PRNQty: 20 RF: 0 meloxicam 15 MG tablet 15 mg PO Q DAY Qty: 20 RF: 0 prazosin 1 MG capsule PO HS Qty: 30 RF: 0 lorazepam 1 MG tablet 1 mg PO SEE INSTRUCTIONS Qty: 2 RF: 0 Referrals: Heidi Richardson DO [Primary Care Provider] - <Nara Alfaro DO - Last Filed: 09/26/17 19:58> [facility] ED Attending Benjamin Attestation: I was immediately available in the department for consultation. Documentation has been reviewed. I agree with assessment and plan.
[2017-09-23 14:35] VITALS: BP 122/78; PULSE 82
[2017-09-23] MEDS: NITROGLYCERIN 0.4 MG SL TAB SL (14:35)
[2017-09-23 15:18] VITALS: BP 118/84; PULSE 66; RESP 14; O2SAT 100
--- NOTE | 2017-09-23 16:20 | PC.NURSE ---
pt states he wants to leave, its fathers Day and I need to be home with my family they are worries. Provider aware. Listened to pt's concerns offered pt warm blanket. Pt refused. Told pt if there is anything I can do to make him more comfortable to let me know. Pt verbalized understanding. Pt agrees to wait until 2nd troponin is drawn before leaving.
[2017-09-23 16:52] LABS: Creatine Kinase 166 U/L (55-170)
[2017-09-23 17:06] LABS: Troponin I < 0.012 ng/mL (0.01-0.034)
[2017-09-23 17:08] LABS: CKMB % Relative Index 0.6 % (1.5-5.0); Creatine Kinase MB 0.94 ng/mL (<2.37)
[2017-09-23 17:30] VITALS: BP 134/80; PULSE 78; RESP 20; O2SAT 98
== END 2017-09-23 17:30 | disposition home or self-care (01) ==
PROVIDERS: Emergency Provider Nurse Practitioner Family; Family Provider Family Medicine; PCP Family Medicine
DX: R07.9 Chest pain, unspecified (principal)
CPT/HCPCS: 36415; 36591; 71045; 80053; 82550; 82553; 84484; 85025; 93005; 96360; 96361; 99283; 99285